=== PATIENT | male | born 1990 | race Two or more races ===

== ENCOUNTER 2025-02-05 23:41 | Emergency (ER) | payer MEDICAID ==
[~2025-02-05] VITALS: Ht 172.7 cm; Wt 68.0 kg
[2025-02-06] MEDS ORDERED: ACETAMINOPHEN ES 500 MG TABLET ONE (00:27)
[2025-02-06] MEDS: ACETAMINOPHEN ES 500 MG TABLET PO ONE (00:30)
[2025-02-06 02:37] VITALS: BP 126/84; TEMP 98.5; O2SAT 99
== END 2025-02-06 02:38 | disposition home or self-care (01) ==
LOC: ER 23:44
DX: S00.83XA Contusion of other part of head, initial encounter (principal); S00.411A Abrasion of right ear, initial encounter; Z91.048 Other nonmedicinal substance allergy status; Z60.2 Problems related to living alone; Y04.0XXA Assault by unarmed brawl or fight, initial encounter; Y93.89 Activity, other specified; Y92.89 Other specified places as the place of occurrence of the external cause; Y99.8 Other external cause status
CPT/HCPCS: 70450-TC; 70486-TC; 72125-TC